=== PATIENT | female | born 1985 | race Caucasian/White ===

== ENCOUNTER 2019-06-01 08:45 | Emergency (ER) | payer OTHER ==
[~2019-06-01] VITALS: Ht 167.6 cm; Wt 80.7 kg
[2019-06-01 08:52] VITALS: Ht 167.6 cm; Wt 80.7 kg
[2019-06-01 12:02] VITALS: BP 147/90
== END 2019-06-01 12:03 | disposition home or self-care (01) ==
LOC: ED 08:45
DX: M62.838 Other muscle spasm (principal); V43.52XA Car driver injured in collision with other type car in traffic accident, initial encounter; Y93.I9 Activity, other involving external motion; Y92.413 State road as the place of occurrence of the external cause; Y99.8 Other external cause status